=== PATIENT | female | born 1955 | race Caucasian/White ===

== ENCOUNTER 2016-12-28 05:52 | Emergency (ER) | payer BC ==
[~2016-12-28] VITALS: Ht 182.9 cm; Wt 59.5 kg
[2016-12-28 06:08] VITALS: Ht 182.9 cm; Wt 59.5 kg
[2016-12-28] MEDS ORDERED: SULF1TAB31 PO (06:57)
[2016-12-28] MEDS ORDERED: CEPH-443 PO (06:57)
[2016-12-28 07:29] VITALS: BP 125/64; PULSE 72; RESP 19; TEMP 98.2
--- NOTE | 2016-12-28 07:29 | ERA ---
ER Documentation Chief Complaint Date/Time DATE: 12/28/16 TIME: 07:28 Chief Complaint bump on left chest x 3 days, getting worse HPI This is a 61-year-old female with a chief complaint of abscess. Patient's primary care provider is out of town so she presented to the ER. Patient states that about 1 year ago took a small piece of foreign body out from under patient skin that formed a cyst but now has grown to become larger. Patient denies fever, weight loss, headache, changes in vision/hearing, stiff neck, difficulty breathing, chest pain, shortness of breath, back pain, nausea, vomiting, diarrhea, constipation, dysuria, hematuria, or discharge. Denies personal or family medical history, sick contacts, recent travel, or recent surgeries/antibiotic use. Vaccination status is up to date. ROS All systems reviewed and are negative except as per history of present illness. Medications Home Meds Active Scripts Sulfamethoxazole/Trimethoprim* (Bactrim Ds* Tablet) 1 Each Tablet, 1 TAB PO BID , #14 TAB Prov:CANDICE FITZGERALD PA-C 12/28/16 Cephalexin* (Keflex*) 500 Mg Capsule, 500 MG PO QID for 5 Days, CAP Prov:CANDICE FITZGERALD PA-C 12/28/16 PMhx/Soc Medical and Surgical Hx: pt denies Medical Hx, pt denies Surgical Hx History of Surgery: No Anesthesia Reaction: No Hx Neurological Disorder: No Hx Respiratory Disorders: No Hx Cardiac Disorders: No Hx Psychiatric Problems: No Hx Miscellaneous Medical Probl: No Hx Alcohol Use: No Hx Substance Use: No Hx Tobacco Use: No Smoking Status: Never smoker Physical Exam Vitals Vital Signs Date Time Temp Pulse Resp B/P Pulse Ox O2 Delivery O2 Flow Rate FiO2 12/28/16 07:29 98.2 72 19 125/64 100 Room Air 12/28/16 06:08 98.5 106 18 124/75 100 Physical Exam Const: Healthy-appearing. Well-nourished. Well-developed. No acute distress. Skin: 4 cm firm nonfluctuant, erythematous, warm, nontender nodule on the upper left portion of the chest above the breast approximately at the second intercostal space midclavicular line. Jaundice. Good turgor. Head: Normocephalic, Atraumatic. Eyes: Non-injected; No scleral erythema, discharge or foreign body. EOMI and ANABELA bilaterally. Ears: Normal External Ears, EACs clear, TM normal bilaterally without erythema. Nose: Normal nose without discharge, septal deviation, or sinus tenderness. Oral: No oral edema visualized. Mucous membranes moist and pink. Neck: No cervical lymphadenopathy, masses or goiter palpated. Full range of motion. Supple. Trachea midline. ~ No meningismus. Pulm: Good air movement in upper and lower respiratory tracts. No dyspnea, stridor, tripoding or drooling. Clear to auscultation bilaterally. Cardio: Regular rate and rhythm; No murmurs, gallops or rubs auscultated. No JVD grossly observed. Radial and posterior tibial pulses 2+ bilaterally. No cyanosis. Capillary refill less than 2 seconds. Abd: Soft, non tender, non distended. No guarding, masses. Normal bowel sounds. No McBurney's point tenderness. MS: Normal motor strength, normal tone with gross examination. Back: No midline, flank or CVA tenderness. Ext: No cyanosis, or edema. Normal movement of all extremities grossly observed. Neur: Awake, alert and oriented x3. Neurovascularly intact bilaterally. Psych: Normal Mood and Affect. Procedures/MDM This is a 61-year-old female presenting with a chief complaint of nodule as described in history and physical examination. Patient has no other symptoms and denies any pain and refused pain medications at this time. Patient states that the nodule has become larger over the past few weeks. It was at a spot of trauma 1 year ago. Patient's most likely diagnosis at this time is solitary nodule. Nodule is not fluctuant at this time I do not believe it needs to be incised and drained. Patient's most likely diagnosis is abscess versus benign skin nodule. At this time I am unable to rule out xanthogranuloma, Najma cell carcinoma, Sister Dede Patiño nodule among other more chronic conditions. I have little suspicion for any acute pathology. Patient will be prescribed antibiotics for possible infection due to warmth. Patient's vitals are stable and her current condition is appropriate for discharge. Patient has a icebox man who she says she will follow-up with and a handout of additional icebox man have been provided to her. Patient is also been instructed to see PCP when he returns from his travels and 1 2 weeks. She has verbally acknowledged that she understands her current condition and plan of management. Patient has no other complaints and will be discharged at this time with discharge instructions return precautions. Departure Diagnosis: Primary Impression: Abscess Condition: Stable Patient Instructions: Abscess, Antiobiotic Treatment Only Additional Instructions: Follow up with your PCP within the next 1-2 weeks for a more thorough evaluation and a possible referral to a specialist. Return the the emergency department immediately if symptoms worsen or change. If you have any questions regarding medications, ask your pharmacist or us before you leave. If any adverse reactions occur while taking your medications, discontinue the treatment and return to the emergency department immediately. Take your medications as directed, and complete the entire course of treatment. CANDICE FITZGERALD PA-C Dec 28, 2016 07:29
== END 2016-12-28 07:29 | disposition home or self-care (01) ==
LOC: FTE 05:52
DX: L02.213 Cutaneous abscess of chest wall (principal)
CPT/HCPCS: 99284